=== PATIENT | male | born 1950 | race Caucasian/White ===

== ENCOUNTER 2016-04-26 00:39 | Emergency (ER) | payer OTHER ==
--- NOTE | 2016-04-26 01:30 | REPUSA ---
CLINICAL HISTORY: Neck pain. TECHNIQUE: Multiple axial images were obtained through the cervical spine. Images were also reconstru cted in coronal and sagittal planes. The study was performed without IV contrast. COMMENTS: Moderate focal spondylosis at C6-C7 level. There is no fracture or spondylolisthesis visualized. The paraspinal soft tissues are unremarkable. T here are no lytic or blastic lesions. Straightening of cervical lordosis is seen, suggesting muscular spasm. There is evidence of mild mult ilevel disk disease, demonstrated by osteophytosis and endplate sclerosis. IMPRESSION: 1. No fracture or spondylolisthesis. 2. Straightening of cervical lordosis is seen, suggesting muscular spasm. 3. Moderate focal spondylosis at C6-C7 level. Thank you for your kind referral of this patient.
[2016-04-26] MEDS ORDERED: ONDANSETRON 4 MG ORAL DISINTEGRATING TAB (S0181) As Ordered ONE (01:53)
[2016-04-26] MEDS ORDERED: KETOROLAC 30 MG/ML VIAL (J1885) As Ordered ONE (01:53)
[2016-04-26] MEDS ORDERED: ACETAMINOPHEN 325 MG TAB As Ordered ONE (01:54)
[2016-04-26] MEDS ORDERED: CYCLOBENZAPRINE 10 MG TAB As Ordered ONE (02:51)
--- NOTE | 2016-04-26 02:57 | EDDOCDS ---
Nurse's Notes [facility] Name: Magdaleno Li Age: 65 yrs Sex: Male : 1950 Arrival Date: 04/26/2016 Time: 00:39 Bed I3 / M3 Private MD: Diagnosis: Unspecified injury of head-possible concussion;Sprain of joints and ligaments of other parts of neck;Fall on and from stairs and steps Presentation: 04/26 00:44 Presenting complaint: Patient states: fell down 9 stairs, head first, reports hearing a af2 snap in neck- states landed on neck. now reports migraine, nausea. Adult Sepsis Screening: The patient does not have new or worsening altered mentation. Patient's respiratory rate is less than 22. Systolic blood pressure is greater than 100. Patient has a qSOFA score of 0- Negative Sepsis Screen. Suicide/Homicide risk assessment- the patient denies having any suicidal and/or homicidal ideations and does not present with any other emotional, behavioral or mental health complaints. Status: Patient is not a biomedical field service engineer or dependent. Transition of care: patient was not received from another setting of care. 00:44 Acuity: NICHOLAS Level 3 af2 00:44 Method Of Arrival: Walkin/Carried/Asstd af2 00:49 Acuity level changed due to complexity of care. af2 00:49 Acuity: NICHOLAS Level 4 af2 Triage Assessment: 00:48 General: Appears in no apparent distress, uncomfortable, Behavior is cooperative. Pain: af2 Location: head Pain currently is 9 out of 10 on a pain scale. HIV screening NA for this visit Offered previously. Neurological: Level of Consciousness is awake, alert, obeys commands, Oriented to person, place, time. Respiratory: Airway is patent Respiratory effort is even, unlabored. Derm: Skin is normal. Musculoskeletal: Reports pain in neck. Historical: - Allergies: Haldol; - Home Meds: 1. naproxen 375 mg Oral tab 1 tab every 12 hours 2. Symbicort 160-4.5 mcg/actuation inhalation HFAA 2 puffs 2 times per day - PMHx: COPD; Migraines; - PSHx: none; - Social history: Smoking status: Patient uses tobacco products, current every day smoker. No barriers to communication noted, The patient speaks fluent Canadian. - Family history: Not pertinent. - : The pt / caregiver states he / she is not on anticoagulants. Home medication list is obtained from the patient. - Exposure Risk Screening:: None identified. Screenin:15 Screening information is obtained from the patient. Fall risk: At risk due to prior b history of falls. Assistance ADL's: requires no assistance with activities of daily living. Abuse/DV Screen: The patient / caregiver reports he/she is: not in a situation that causes fear, pain or injury. Nutritional screening: No deficits noted. home support is adequate. 02:55 Advance Directives: Currently, there is no health care proxy. There is no active DNR jmb order. There is no living will. There is no Power of Server Programmer. Assessment: 00:50 General: lindsay collar placed to neck by this quality analyst/technical writer.. af2 02:15 General: Appears in no apparent distress, comfortable, Behavior is appropriate for age, jmb cooperative. Neurological: Level of Consciousness is awake, alert, obeys commands, Oriented to person, place, time, Tool Die Maker are equal bilaterally Speech is normal, Facial symmetry appears normal, Facial symmetry: tongue is midline. Cardiovascular: Capillary refill < 3 seconds Heart tones present Pulses are all present. Rhythm is regular. Respiratory: Airway is patent Respiratory effort is even, unlabored, Respiratory pattern is regular, symmetrical, Breath sounds are clear bilaterally. GI: Abdomen is non- distended Bowel sounds present X 4 quads. Abd is soft X 4 quads. Derm: Skin is pink, warm & dry. Musculoskeletal: Range of motion intact in all extremities. 02:55 General: Patient instructed on discharge instructions. Patient asked if there were any b questions regarding discharge, patient stated no. Patient signed discharge instructions. Patient discharged in stable condition. . Vital Signs: 00:43 BP 164 / 103 LA Sitting (auto/); Pulse 81; Resp 18 S; Temp 98.1(TE); Pulse Ox 96% on af2 R/A; Weight 104.33 kg (R); Height 6 ft. 6 in. (198.12 cm) (R); Pain 9/10; 02:55 BP 148 / 88; Pulse 80; Resp 18; Temp 98.0(O); Pulse Ox 97% on R/A; Pain 0/10; jmb 00:43 Body Mass Index 26.58 (104.33 kg, 198.12 cm) af2 Vitals: 00:43 Log In Time: April 26, 2016 at 00:39. af2 ED Course: 00:40 Patient visited by Willy Valdez Reg. pm4 00:40 Patient moved to Waiting pm4 00:47 Triage Initiated af2 00:49 Patient visited by Tori Chandler RN. af2 00:50 Patient visited by Tori Chandler RN. af2 01:04 Patient moved to I3 / M3 ajs 01:31 CT Head Without Contrast Returned. EDMS 01:31 CT Spine,Cervical W/o Contrast Returned. EDMS 01:45 Darrick Thompson PA-C is PHCP. ar2 01:45 Rakesh Pcikard MD is Attending Physician. ar2 01:45 Patient visited by Darrick Thompson PA-C. ar2 02:15 The patient / caregiver is instructed regarding the plan of care and ED course. jmb 02:15 No IV's were initiated during this patient's visit. No procedures done that require jmb assistance. 02:16 [facility] Payment Agreement was scanned into [employer] and attached to record. pm4 02:17 Patient visited by Anjel Torres RN. jmb Administered Medications: 01:59 Drug: ketorolac 60 mg [ketorolac 30 mg/mL (1 mL) injection solution (2 mL)] Route: IM; jmb Site: left deltoid; 01:59 Drug: Acetaminophen 975 mg [acetaminophen 325 mg tablet (3 tabs)] Route: PO; jmb 01:59 Drug: Ondansetron ODT 4 mg [ondansetron 4 mg disintegrating tablet (1 tabs)] Route: PO; jmb 02:53 Drug: Cyclobenzaprine 10 mg [cyclobenzaprine 10 mg tablet (1 tabs)] Route: PO; jmb Order Results: Radiology Order: CT Head Without Contrast Test: CT Head Without Contrast REASON FOR EXAMINATION: Trauma; ; CLINICAL HISTORY: Head trauma.; TECHNIQUE: Multiple axial brain CT scan sections were obtained from base to vertex without contrast a; dministration.; COMMENTS:; There is no evidence of skull fracture.; The study shows normal configuration of sella turcica. There are no intra or extra-axial collections.; There is no mass effect or midline shift. There is no evidence of hematoma formation. No hydrocephal; us is present. No abnormal calcifications are noted.; No significant abnormalities are seen either in the posterior fossa or supratentorial compartment.; The sinuses and mastoid air cells are patent.; IMPRESSION:; No evidence of acute intracranial pathology. No intracranial hemorrhage or skull fracture.; Thank you for your kind referral of this patient.; ; Radiology Order: CT Spine,Cervical W/o Contrast Test: CT Spine,Cervical W/o Contrast REASON FOR EXAMINATION: Trauma; ; CLINICAL HISTORY: Neck pain.; TECHNIQUE: Multiple axial images were obtained through the cervical spine. Images were also reconstru; cted in coronal and sagittal planes. The study was performed without IV contrast.; COMMENTS:; Moderate focal spondylosis at C6-C7 level.; There is no fracture or spondylolisthesis visualized. The paraspinal soft tissues are unremarkable. T; here are no lytic or blastic lesions.; Straightening of cervical lordosis is seen, suggesting muscular spasm. There is evidence of mild mult; ilevel disk disease, demonstrated by osteophytosis and endplate sclerosis.; IMPRESSION:; 1. No fracture or spondylolisthesis.; 2. Straightening of cervical lordosis is seen, suggesting muscular spasm.; 3. Moderate focal spondylosis at C6-C7 level.; Thank you for your kind referral of this patient.; ; Outcome: 02:51 Discharge ordered by Provider. ar2 02:55 Discharge Assessment: Patient awake, alert and oriented x 3. No cognitive and/or jmb functional deficits noted. Patient verbalized understanding of disposition instructions. Patient awake and alert. obeys commands, Oriented to person, place and time. Patient verbalized understanding of disposition instructions. Patient has no functional deficits. patient administered narcotics - no. The following High Risk Discharge criteria are identified: None. Discharged to home ambulatory, with significant other. Condition: stable Condition: improved. Discharge instructions given to patient, Instructed on discharge instructions, follow up and referral plans. medication usage, Demonstrated understanding of instructions, medications, Pt was receptive of discharge instructions/ teaching. Prescriptions given X 2. CT Study completed. Property sent home with patient. 02:57 Patient left the ED. tonya Signatures: Dispatcher [employer] EDDarrick Baumann PA-C PA-C ar2 Yadira Centeno JoshuaRN RN Tori Esquivel RN RN af2 Willy Valdez, Reg Reg pm4 MTDD
--- NOTE | 2016-04-26 02:57 | EDDOCDS ---
Physician Documentation [facility] Name: Magdaleno Li Age: 65 yrs Sex: Male : 1950 Arrival Date: 04/26/2016 Time: 00:39 Bed I3 / M3 Private MD: Disposition: 04/26/16 02:51 Discharged to Home/Self Care. Impression: Unspecified injury of head - possible concussion, Sprain of joints and ligaments of other parts of neck, Fall on and from stairs and steps. - Condition is Stable. - Discharge Instructions: Concussion, Adult, Head Injury, Adult, Cervical Sprain. - Prescriptions for Cyclobenzaprine 10 mg Oral Tablet - take 1 tablet by ORAL route 3 times per day As needed; 15 tablet. ZOFRAN ODT 4 mg - dissolve 1 tablet by ORAL route 4 times per day As needed do not chew, do not swallow whole; 10 tablet. - Medication Reconciliation, Local Pharmacy Hours form. - Follow up: Private Physician; When: 1 - 2 days; Reason: Recheck today's complaints, Continuance of care. Follow up: Emergency Department; When: As needed; Reason: Worsening of conditions. - Problem is new. - Symptoms have improved. Historical: - Allergies: Haldol; - Home Meds: 1. naproxen 375 mg Oral tab 1 tab every 12 hours 2. Symbicort 160-4.5 mcg/actuation inhalation HFAA 2 puffs 2 times per day - PMHx: COPD; Migraines; - PSHx: none; - Social history: Smoking status: Patient uses tobacco products, current every day smoker. No barriers to communication noted, The patient speaks fluent Sierra Leonean. - Family history: Not pertinent. - : The pt / caregiver states he / she is not on anticoagulants. Home medication list is obtained from the patient. - Exposure Risk Screening:: None identified. Vital Signs: 04/26 00:43 BP 164 / 103 LA Sitting (auto/); Pulse 81; Resp 18 S; Temp 98.1(TE); Pulse Ox 96% on af2 R/A; Weight 104.33 kg / 230.01 lbs (R); Height 6 ft. 6 in. (198.12 cm) (R); Pain 9/10; 02:55 BP 148 / 88; Pulse 80; Resp 18; Temp 98.0(O); Pulse Ox 97% on R/A; Pain 0/10; jmb 00:43 Body Mass Index 26.58 (104.33 kg, 198.12 cm) af2 MDM: 00:52 Apply Stefania Collar to Patient. ordered. ar2 00:53 CT Head Without Contrast Ordered. EDMS 00:53 CT Spine,Cervical W/o Contrast Ordered. EDMS 01:52 ketorolac 60 mg IM once ordered. ar2 01:52 Acetaminophen Tablet 975 mg PO once ordered. ar2 01:52 Ondansetron ODT Oral Disintegrating Tablet 4 mg PO once ordered. ar2 02:01 Financial registration complete. hs2 02:16 [facility] Payment Agreement was scanned into [employer] and attached to record. pm4 02:50 Cyclobenzaprine 10 mg PO once; dispense with patient ordered. ar2 Administered Medications: 01:59 Drug: ketorolac 60 mg [ketorolac 30 mg/mL (1 mL) injection solution (2 mL)] Route: IM; b Site: left deltoid; 01:59 Drug: Acetaminophen 975 mg [acetaminophen 325 mg tablet (3 tabs)] Route: PO; jmb 01:59 Drug: Ondansetron ODT 4 mg [ondansetron 4 mg disintegrating tablet (1 tabs)] Route: PO; jmb 02:53 Drug: Cyclobenzaprine 10 mg [cyclobenzaprine 10 mg tablet (1 tabs)] Route: PO; b Signatures: [facility]patcher [facility] Darrick Thompson PA-C PA-C ar2 Anjel Torres RN RN jmb Tori Chandler RN RN af2 Angela Hein, Reg Reg hs2 Willy Valdez, Reg Reg pm4 The chart was reviewed and I authenticate all verbal orders and agree with the evaluation and treatment provided.Attachments: 02:16 [facility] Payment Agreement pm4 [facility]
--- NOTE | 2016-04-28 03:58 | EDDOCDS ---
Nurse's Notes [facility] Name: Magdaleno Li Age: 65 yrs Sex: Male : 1950 Arrival Date: 04/26/2016 Time: 00:39 Bed I3 / M3 Private MD: Diagnosis: Unspecified injury of head-possible concussion;Sprain of joints and ligaments of other parts of neck;Fall on and from stairs and steps Presentation: 04/26 00:44 Presenting complaint: Patient states: fell down 9 stairs, head first, reports hearing a af2 snap in neck- states landed on neck. now reports migraine, nausea. Adult Sepsis Screening: The patient does not have new or worsening altered mentation. Patient's respiratory rate is less than 22. Systolic blood pressure is greater than 100. Patient has a qSOFA score of 0- Negative Sepsis Screen. Suicide/Homicide risk assessment- the patient denies having any suicidal and/or homicidal ideations and does not present with any other emotional, behavioral or mental health complaints. Status: Patient is not a manager financial services or dependent. Transition of care: patient was not received from another setting of care. 00:44 Acuity: NICHOLAS Level 3 af2 00:44 Method Of Arrival: Walkin/Carried/Asstd af2 00:49 Acuity level changed due to complexity of care. af2 00:49 Acuity: NICHOLAS Level 4 af2 Triage Assessment: 00:48 General: Appears in no apparent distress, uncomfortable, Behavior is cooperative. Pain: af2 Location: head Pain currently is 9 out of 10 on a pain scale. HIV screening NA for this visit Offered previously. Neurological: Level of Consciousness is awake, alert, obeys commands, Oriented to person, place, time. Respiratory: Airway is patent Respiratory effort is even, unlabored. Derm: Skin is normal. Musculoskeletal: Reports pain in neck. Historical: - Allergies: Haldol; - Home Meds: 1. naproxen 375 mg Oral tab 1 tab every 12 hours 2. Symbicort 160-4.5 mcg/actuation inhalation HFAA 2 puffs 2 times per day - PMHx: COPD; Migraines; - PSHx: none; - Social history: Smoking status: Patient uses tobacco products, current every day smoker. No barriers to communication noted, The patient speaks fluent Chadian. - Family history: Not pertinent. - : The pt / caregiver states he / she is not on anticoagulants. Home medication list is obtained from the patient. - Exposure Risk Screening:: None identified. Screenin:15 Screening information is obtained from the patient. Fall risk: At risk due to prior b history of falls. Assistance ADL's: requires no assistance with activities of daily living. Abuse/DV Screen: The patient / caregiver reports he/she is: not in a situation that causes fear, pain or injury. Nutritional screening: No deficits noted. home support is adequate. 02:55 Advance Directives: Currently, there is no health care proxy. There is no active DNR jmb order. There is no living will. There is no Power of Block Cutter. Assessment: 00:50 General: lindsay collar placed to neck by this headline writer.. af2 02:15 General: Appears in no apparent distress, comfortable, Behavior is appropriate for age, jmb cooperative. Neurological: Level of Consciousness is awake, alert, obeys commands, Oriented to person, place, time, Lead Pony Rider are equal bilaterally Speech is normal, Facial symmetry appears normal, Facial symmetry: tongue is midline. Cardiovascular: Capillary refill < 3 seconds Heart tones present Pulses are all present. Rhythm is regular. Respiratory: Airway is patent Respiratory effort is even, unlabored, Respiratory pattern is regular, symmetrical, Breath sounds are clear bilaterally. GI: Abdomen is non- distended Bowel sounds present X 4 quads. Abd is soft X 4 quads. Derm: Skin is pink, warm & dry. Musculoskeletal: Range of motion intact in all extremities. 02:55 General: Patient instructed on discharge instructions. Patient asked if there were any b questions regarding discharge, patient stated no. Patient signed discharge instructions. Patient discharged in stable condition. . Vital Signs: 00:43 BP 164 / 103 LA Sitting (auto/); Pulse 81; Resp 18 S; Temp 98.1(TE); Pulse Ox 96% on af2 R/A; Weight 104.33 kg (R); Height 6 ft. 6 in. (198.12 cm) (R); Pain 9/10; 02:55 BP 148 / 88; Pulse 80; Resp 18; Temp 98.0(O); Pulse Ox 97% on R/A; Pain 0/10; jmb 00:43 Body Mass Index 26.58 (104.33 kg, 198.12 cm) af2 Vitals: 00:43 Log In Time: April 26, 2016 at 00:39. af2 ED Course: 00:40 Patient visited by Willy Valdez Reg. pm4 00:40 Patient moved to Waiting pm4 00:47 Triage Initiated af2 00:49 Patient visited by Tori Chandler RN. af2 00:50 Patient visited by Tori Chandler RN. af2 01:04 Patient moved to I3 / M3 ajs 01:31 CT Head Without Contrast Returned. EDMS 01:31 CT Spine,Cervical W/o Contrast Returned. EDMS 01:45 Darrick Thompson PA-C is PHCP. ar2 01:45 Rakesh Pickard MD is Attending Physician. ar2 01:45 Patient visited by Darrick Thompson PA-C. ar2 02:15 The patient / caregiver is instructed regarding the plan of care and ED course. jmb 02:15 No IV's were initiated during this patient's visit. No procedures done that require jmb assistance. 02:16 [facility] Payment Agreement was scanned into [employer] and attached to record. pm4 02:17 Patient visited by Anjel Torres RN. jmb 14:33 T-Sheet-- Draft Copy was scanned into [employer] and attached to record. gb 14:33 Radiology Report was scanned into [employer] and attached to record. gb Administered Medications: 01:59 Drug: ketorolac 60 mg [ketorolac 30 mg/mL (1 mL) injection solution (2 mL)] Route: IM; jmb Site: left deltoid; 01:59 Drug: Acetaminophen 975 mg [acetaminophen 325 mg tablet (3 tabs)] Route: PO; jmb 01:59 Drug: Ondansetron ODT 4 mg [ondansetron 4 mg disintegrating tablet (1 tabs)] Route: PO; jmb 02:53 Drug: Cyclobenzaprine 10 mg [cyclobenzaprine 10 mg tablet (1 tabs)] Route: PO; jmb Order Results: Radiology Order: CT Head Without Contrast Test: CT Head Without Contrast REASON FOR EXAMINATION: Trauma; ; CLINICAL HISTORY: Head trauma.; TECHNIQUE: Multiple axial brain CT scan sections were obtained from base to vertex without contrast a; dministration.; COMMENTS:; There is no evidence of skull fracture.; The study shows normal configuration of sella turcica. There are no intra or extra-axial collections.; There is no mass effect or midline shift. There is no evidence of hematoma formation. No hydrocephal; us is present. No abnormal calcifications are noted.; No significant abnormalities are seen either in the posterior fossa or supratentorial compartment.; The sinuses and mastoid air cells are patent.; IMPRESSION:; No evidence of acute intracranial pathology. No intracranial hemorrhage or skull fracture.; Thank you for your kind referral of this patient.; ; Radiology Order: CT Spine,Cervical W/o Contrast Test: CT Spine,Cervical W/o Contrast REASON FOR EXAMINATION: Trauma; ; CLINICAL HISTORY: Neck pain.; TECHNIQUE: Multiple axial images were obtained through the cervical spine. Images were also reconstru; cted in coronal and sagittal planes. The study was performed without IV contrast.; COMMENTS:; Moderate focal spondylosis at C6-C7 level.; There is no fracture or spondylolisthesis visualized. The paraspinal soft tissues are unremarkable. T; here are no lytic or blastic lesions.; Straightening of cervical lordosis is seen, suggesting muscular spasm. There is evidence of mild mult; ilevel disk disease, demonstrated by osteophytosis and endplate sclerosis.; IMPRESSION:; 1. No fracture or spondylolisthesis.; 2. Straightening of cervical lordosis is seen, suggesting muscular spasm.; 3. Moderate focal spondylosis at C6-C7 level.; Thank you for your kind referral of this patient.; ; Outcome: 02:51 Discharge ordered by Provider. ar2 02:55 Discharge Assessment: Patient awake, alert and oriented x 3. No cognitive and/or jmb functional deficits noted. Patient verbalized understanding of disposition instructions. Patient awake and alert. obeys commands, Oriented to person, place and time. Patient verbalized understanding of disposition instructions. Patient has no functional deficits. patient administered narcotics - no. The following High Risk Discharge criteria are identified: None. Discharged to home ambulatory, with significant other. Condition: stable Condition: improved. Discharge instructions given to patient, Instructed on discharge instructions, follow up and referral plans. medication usage, Demonstrated understanding of instructions, medications, Pt was receptive of discharge instructions/ teaching. Prescriptions given X 2. CT Study completed. Property sent home with patient. 02:57 Patient left the ED. tonya Signatures: Dispatcher [employer] EDSD Margarette Jackson, Reg Reg gb Darrick Thompson, CLAIRE RANGEL ar2 Yadira Centeno Joshua,RN RN Tori Esquivel RN RN af2 Willy Valdez, Reg Reg pm4 Chart Complete MTDD
--- NOTE | 2016-04-28 03:58 | EDDOCDS ---
Physician Documentation [facility] Name: Magdaleno Li Age: 65 yrs Sex: Male : 1950 Arrival Date: 04/26/2016 Time: 00:39 Bed I3 / M3 Private MD: Disposition: 04/26/16 02:51 Discharged to Home/Self Care. Impression: Unspecified injury of head - possible concussion, Sprain of joints and ligaments of other parts of neck, Fall on and from stairs and steps. - Condition is Stable. - Discharge Instructions: Concussion, Adult, Head Injury, Adult, Cervical Sprain. - Prescriptions for Cyclobenzaprine 10 mg Oral Tablet - take 1 tablet by ORAL route 3 times per day As needed; 15 tablet. ZOFRAN ODT 4 mg - dissolve 1 tablet by ORAL route 4 times per day As needed do not chew, do not swallow whole; 10 tablet. - Medication Reconciliation, Local Pharmacy Hours form. - Follow up: Private Physician; When: 1 - 2 days; Reason: Recheck today's complaints, Continuance of care. Follow up: Emergency Department; When: As needed; Reason: Worsening of conditions. - Problem is new. - Symptoms have improved. Historical: - Allergies: Haldol; - Home Meds: 1. naproxen 375 mg Oral tab 1 tab every 12 hours 2. Symbicort 160-4.5 mcg/actuation inhalation HFAA 2 puffs 2 times per day - PMHx: COPD; Migraines; - PSHx: none; - Social history: Smoking status: Patient uses tobacco products, current every day smoker. No barriers to communication noted, The patient speaks fluent Beninese. - Family history: Not pertinent. - : The pt / caregiver states he / she is not on anticoagulants. Home medication list is obtained from the patient. - Exposure Risk Screening:: None identified. Vital Signs: 04/26 00:43 BP 164 / 103 LA Sitting (auto/); Pulse 81; Resp 18 S; Temp 98.1(TE); Pulse Ox 96% on af2 R/A; Weight 104.33 kg / 230.01 lbs (R); Height 6 ft. 6 in. (198.12 cm) (R); Pain 9/10; 02:55 BP 148 / 88; Pulse 80; Resp 18; Temp 98.0(O); Pulse Ox 97% on R/A; Pain 0/10; jmb 00:43 Body Mass Index 26.58 (104.33 kg, 198.12 cm) af2 MDM: 00:52 Apply Stefania Collar to Patient. ordered. ar2 00:53 CT Head Without Contrast Ordered. EDMS 00:53 CT Spine,Cervical W/o Contrast Ordered. EDMS 01:52 ketorolac 60 mg IM once ordered. ar2 01:52 Acetaminophen Tablet 975 mg PO once ordered. ar2 01:52 Ondansetron ODT Oral Disintegrating Tablet 4 mg PO once ordered. ar2 02:01 Financial registration complete. hs2 02:16 [facility] Payment Agreement was scanned into [employer] and attached to record. pm4 02:50 Cyclobenzaprine 10 mg PO once; dispense with patient ordered. ar2 14:33 T-Sheet-- Draft Copy was scanned into [employer] and attached to record. gb 14:33 Radiology Report was scanned into [employer] and attached to record. gb Administered Medications: 01:59 Drug: ketorolac 60 mg [ketorolac 30 mg/mL (1 mL) injection solution (2 mL)] Route: IM; b Site: left deltoid; 01:59 Drug: Acetaminophen 975 mg [acetaminophen 325 mg tablet (3 tabs)] Route: PO; b 01:59 Drug: Ondansetron ODT 4 mg [ondansetron 4 mg disintegrating tablet (1 tabs)] Route: PO; b 02:53 Drug: Cyclobenzaprine 10 mg [cyclobenzaprine 10 mg tablet (1 tabs)] Route: PO; b Signatures: Dispatcher [employer] EDRI Margarette Jackson, Reg Reg gb Darrick Thompson, PASona PASona ar2 Anjel Torres RN RN tayb Tori ChandlerRN RN af2 Angela Hein, Reg Reg hs2 Willy Valdez, Reg Reg pm4 The chart was reviewed and I authenticate all verbal orders and agree with the evaluation and treatment provided.Attachments: 02:16 [facility] Payment Agreement pm4 14:33 T-Sheet-- Draft Copy gb Chart Complete MTDD
--- NOTE | 2016-04-28 03:58 | EDDOCDS ---
Physician Documentation [facility] Name: Magdaleno Li Age: 65 yrs Sex: Male : 1950 Arrival Date: 04/26/2016 Time: 00:39 Bed I3 / M3 Private MD: Disposition: 04/26/16 02:51 Discharged to Home/Self Care. Impression: Unspecified injury of head - possible concussion, Sprain of joints and ligaments of other parts of neck, Fall on and from stairs and steps. - Condition is Stable. - Discharge Instructions: Concussion, Adult, Head Injury, Adult, Cervical Sprain. - Prescriptions for Cyclobenzaprine 10 mg Oral Tablet - take 1 tablet by ORAL route 3 times per day As needed; 15 tablet. ZOFRAN ODT 4 mg - dissolve 1 tablet by ORAL route 4 times per day As needed do not chew, do not swallow whole; 10 tablet. - Medication Reconciliation, Local Pharmacy Hours form. - Follow up: Private Physician; When: 1 - 2 days; Reason: Recheck today's complaints, Continuance of care. Follow up: Emergency Department; When: As needed; Reason: Worsening of conditions. - Problem is new. - Symptoms have improved. Historical: - Allergies: Haldol; - Home Meds: 1. naproxen 375 mg Oral tab 1 tab every 12 hours 2. Symbicort 160-4.5 mcg/actuation inhalation HFAA 2 puffs 2 times per day - PMHx: COPD; Migraines; - PSHx: none; - Social history: Smoking status: Patient uses tobacco products, current every day smoker. No barriers to communication noted, The patient speaks fluent Mosotho. - Family history: Not pertinent. - : The pt / caregiver states he / she is not on anticoagulants. Home medication list is obtained from the patient. - Exposure Risk Screening:: None identified. Vital Signs: 04/26 00:43 BP 164 / 103 LA Sitting (auto/); Pulse 81; Resp 18 S; Temp 98.1(TE); Pulse Ox 96% on af2 R/A; Weight 104.33 kg / 230.01 lbs (R); Height 6 ft. 6 in. (198.12 cm) (R); Pain 9/10; 02:55 BP 148 / 88; Pulse 80; Resp 18; Temp 98.0(O); Pulse Ox 97% on R/A; Pain 0/10; jmb 00:43 Body Mass Index 26.58 (104.33 kg, 198.12 cm) af2 MDM: 00:52 Apply Stefania Collar to Patient. ordered. ar2 00:53 CT Head Without Contrast Ordered. EDMS 00:53 CT Spine,Cervical W/o Contrast Ordered. EDMS 01:52 ketorolac 60 mg IM once ordered. ar2 01:52 Acetaminophen Tablet 975 mg PO once ordered. ar2 01:52 Ondansetron ODT Oral Disintegrating Tablet 4 mg PO once ordered. ar2 02:01 Financial registration complete. hs2 02:16 [facility] Payment Agreement was scanned into [employer] and attached to record. pm4 02:50 Cyclobenzaprine 10 mg PO once; dispense with patient ordered. ar2 14:33 T-Sheet-- Draft Copy was scanned into [employer] and attached to record. gb 14:33 Radiology Report was scanned into [employer] and attached to record. gb Administered Medications: 01:59 Drug: ketorolac 60 mg [ketorolac 30 mg/mL (1 mL) injection solution (2 mL)] Route: IM; b Site: left deltoid; 01:59 Drug: Acetaminophen 975 mg [acetaminophen 325 mg tablet (3 tabs)] Route: PO; b 01:59 Drug: Ondansetron ODT 4 mg [ondansetron 4 mg disintegrating tablet (1 tabs)] Route: PO; b 02:53 Drug: Cyclobenzaprine 10 mg [cyclobenzaprine 10 mg tablet (1 tabs)] Route: PO; b Signatures: Dispatcher [employer] EDUT Margarette Jackson, Reg Reg gb Darrick Thompson, PASona PASona ar2 Anjel Torres RN RN tayb Tori ChandlerRN RN af2 Angela Hein, Reg Reg hs2 Willy Valdez, Reg Reg pm4 The chart was reviewed and I authenticate all verbal orders and agree with the evaluation and treatment provided.Attachments: 02:16 [facility] Payment Agreement pm4 14:33 T-Sheet-- Draft Copy gb Chart Complete MTDD
== END 2016-04-26 02:57 | disposition home or self-care (01) ==
LOC: M ED 00:39
DX: S09.90XA Unspecified injury of head, initial encounter (principal); S13.4XXA Sprain of ligaments of cervical spine, initial encounter; W10.9XXA Fall (on) (from) unspecified stairs and steps, initial encounter; Y92.018 Other place in single-family (private) house as the place of occurrence of the external cause; Y93.89 Activity, other specified; Y99.8 Other external cause status; J44.9 Chronic obstructive pulmonary disease, unspecified; G43.909 Migraine, unspecified, not intractable, without status migrainosus; Z79.899 Other long term (current) drug therapy; Z88.8 Allergy status to other drugs, medicaments and biological substances; F17.210 Nicotine dependence, cigarettes, uncomplicated
CPT/HCPCS: 70450; 72125; 96372; 99284; J1885

== ENCOUNTER 2016-07-03 23:32 | Emergency (ER) | payer MEDICAID, OTHER ==
[~2016-07-03] VITALS: Ht 198.1 cm; Wt 105.2 kg
[2016-07-03] MEDS ORDERED: ALBU17IN2 INH (23:41)
[2016-07-03] MEDS ORDERED: PROP60TA14 PO (23:41)
[2016-07-03] MEDS ORDERED: SYMB16INH INH (23:41)
[2016-07-04] MEDS ORDERED: ONDANSETRON 4MG/2ML VIAL (J2405) As Ordered ONE (00:24)
[2016-07-04 01:19] LABS: ALBUMIN 3.5 GM/DL (3.2-5.2); ALKALINE PHOSPHATASE 99 U/L (45-117); ALT/SGPT 25 U/L (12-78); ANION GAP 5 MEQ/L (8-16); AST/SGOT 20 U/L (15-37); BILIRUBIN,DIRECT < 0.1 MG/DL (0.0-0.2); BILIRUBIN,TOTAL 0.3 MG/DL (0.2-1.0); BLOOD UREA NITROGEN 18 MG/DL (7-18); CALCIUM LEVEL 8.4 MG/DL (8.8-10.2); CARBON DIOXIDE LEVEL 25 MEQ/L (21-32); CHLORIDE LEVEL 110 MEQ/L (98-107); CREATININE FOR GFR 1.22 MG/DL (0.70-1.30); GLOMERULAR FILTRATION RATE > 60.0 (>49); GLUCOSE, FASTING 109 MG/DL (80-110); POTASSIUM SERUM 4.1 MEQ/L (3.5-5.1); SODIUM LEVEL 140 MEQ/L (136-145)
[2016-07-04 01:33] LABS: BASO # 0.1 K/mm3 (0.0-0.2); BASO % 0.9 % (0.0-1.0); EOS # 0.7 K/mm3 (0.0-0.50); EOS % 6.2 % (0.0-3.0); LARGE UNSTAINED CELL # 0.3 K/mm3 (0.0-0.4); LARGE UNSTAINED CELL % 2.2 % (0.0-4.0); LYMPH # 3.2 K/mm3 (1.5-4.5); LYMPH % 26.2 % (24.0-44.0); MEAN CORPUSCULAR HEMOGLOBIN 31.5 pg (27.0-33.0); MEAN CORPUSCULAR HGB CONC 33.8 g/dl (32.0-36.5); MEAN CORPUSCULAR VOLUME 93.3 fl (80.0-96.0); MONO # 0.8 K/mm3 (0.0-0.8); MONO % 7.3 % (0.0-5.0); NEUTROPHILS # 6.5 K/mm3 (1.8-7.7); NEUTROPHILS % 57.3 % (36.0-66.0); PLATELET COUNT, AUTOMATED 315 k/mm3 (150-450); RED CELL DISTRIBUTION WIDTH 12.9 % (11.5-14.5); WHITE BLOOD COUNT 11.4 K/mm3 (4.0-10.0)
[2016-07-04] MEDS ORDERED: NS 1,000 ML IV ONE (02:15)
[2016-07-04] MEDS ORDERED: IPRATROPIUM 0.5MG/ALBUTEROL 2.5MG INH SOL UD 3ML (DUONEB)(J7620) NEB ONE (02:15)
[2016-07-04] MEDS ORDERED: dexameTHASONE 20 MG/5 ML VIAL (J1100) IV ONE (02:15)
--- NOTE | 2016-07-04 03:10 | REPUSA ---
CLINICAL HISTORY: Abdominal pain. TECHNIQUE: Multiple axial, sagittal and coronal CT images were obtained through the abdomen and pelvi s without administration of oral or IV contrast material. COMMENTS: The liver is of uniform attenuation without mass or defect. There is no intra or extrahepatic biliary ductal dilatation. The spleen is normal. The gallbladder is within normal limits. The pancreas is of normal contour and attenuation characteristics. There is no evidence of adrenal mass. Mild right hydronephrosis. Normal caliber of the right ureter. The kidneys are normal in size, shape and configuration. No renal or ureteral calculi are identified. There is no left hydroureter or hydronephrosis. There is no evidence for appendicitis. There is no bowel wall thickening. No evidence for small or la rge bowel obstruction. There is no evidence of abdominal ascites or lymphadenopathy. There is no evidence of intrinsic or extrinsic bladder mass. There is no pelvic ascites or lymphadeno gerardo. Moderate large right fecal stasis Images of the lung bases show no evidence of pleural or parenchymal mass. There are no pleural effusi ons. The bony structures are free of lytic or blastic lesions. Multilevel degenerative changes are seen in volving the thoracolumbar spine. Scattered calcifications are seen involving the aorta and major branches compatible with atherosclero sis. Atelectatic changes of the right lower lobe. IMPRESSION: Constipation. Right UPJ stenosis. Thank you for your kind referral of this patient.
[2016-07-04] MEDS ORDERED: traMADol 50 MG TAB PO ONE (04:15)
[2016-07-04] MEDS ORDERED: PRED20TA PO (04:28)
[2016-07-04 04:55] VITALS: BP 152/107
--- NOTE | 2016-07-04 08:06 | REP ---
Chest single PA view: Comparison is a PA and lateral study of 01/08/2016. There is a faintly visible linear density projected over the right upper lobe superolaterally, possibly artifact from the scapula, but not present previously. Other diagnostic considerations are mass and subsegmental infiltrate. Follow-up is recommended. The remainder of the lung baron are clear. Cardiac size is normal. The destiny, mediastinum, and bony thorax are unchanged. Impression: Right upper lobe density as described. Signed by Jesus Castaneda MD 07/04/2016 07:56 A
--- NOTE | 2016-07-04 08:30 | ED PDOC ---
Post-Departure Follow-Up certified letter sent to pt re formal cxr. please have pt fu w pcp which is not listed in chart. Priti Gillespie MD Jul 04, 2016 08:30
--- NOTE | 2016-07-04 08:34 | ED PDOC ---
Post-Departure Follow-Up dr garcia faxed formal report of CT abd/p for fu jeanmarieg Priti Bates MD Jul 04, 2016 08:34
--- NOTE | 2016-07-04 21:43 | ECGEPIP ---
Stationary ECG Study [facility] - ED Test Date: 2016-07-04 Pat Name: WILY GOETZ Department: Room: - Gender: M Contract Design Agent: angelita : 1950 Requested By: JAYLA CHUNG Order Number: [id number] Reading MD: Orin Ortiz Measurements Intervals [place] Rate: 77 P: 67 [place]: 203 QRS: -44 QRSD: 96 T: 44 QT: 362 QTc: 410 Interpretive Statements SINUS RHYTHM MARKED LEFT AXIS DEVIATION SIMILAR 01/08/16 Electronically Signed On 07-04-2016 21:43:13 EDT by Orin Ortiz
== END 2016-07-04 05:11 | disposition home or self-care (01) ==
LOC: M ED 07-04 00:20
DX: J44.9 Chronic obstructive pulmonary disease, unspecified (principal); K59.00 Constipation, unspecified; N13.8 Other obstructive and reflux uropathy; F17.210 Nicotine dependence, cigarettes, uncomplicated
CPT/HCPCS: 71010; 74176; 80048; 80076; 81001; 82550; 82553; 83690; 84484; 85025; 87086; 93005; 93041; 94640; 96374; 96375; 99285; J1100

== ENCOUNTER → 2016-07-06 | Outpatient (CLI) | payer OTHER ==
[~2016-07-06] MED LIST: ALBU17IN2 INH; PRED20TA PO; PROP60TA14 PO; SYMB16INH INH
== END ==
LOC: M SMT 10:19
PROVIDERS: ATTEND Nurse Practitioner Women's Health
DX: R31.29 Other microscopic hematuria (principal); Z12.5 Encounter for screening for malignant neoplasm of prostate
CPT/HCPCS: 36415; 51798; 81001; 87086; 88108; G0103; G0463

== ENCOUNTER 2016-07-10 04:07 | Emergency (ER) | payer OTHER ==
[~2016-07-10] VITALS: Ht 198.1 cm; Wt 104.3 kg
[2016-07-10] MEDS ORDERED: diphenhydrAMINE INJ 50MG/ML VIAL (J1200) IV STA (07:02)
[2016-07-10] MEDS ORDERED: NS 1,000 ML IV ONE (07:15)
[2016-07-10] MEDS ORDERED: METOCLOPRAMIDE INJ 10MG/2ML VIAL (J2765) IV ONE (07:15)
[2016-07-10] MEDS ORDERED: KETOROLAC 30 MG/ML VIAL (J1885) IV ONE (07:15)
[2016-07-10 07:32] LABS: BASO # 0.1 K/mm3 (0.0-0.2); BASO % 0.7 % (0.0-1.0); EOS # 0.8 K/mm3 (0.0-0.50); EOS % 7.6 % (0.0-3.0); LARGE UNSTAINED CELL # 0.2 K/mm3 (0.0-0.4); LYMPH # 3.1 K/mm3 (1.5-4.5); LYMPH % 25.6 % (24.0-44.0); MEAN CORPUSCULAR HEMOGLOBIN 31.1 pg (27.0-33.0); MEAN CORPUSCULAR HGB CONC 33.1 g/dl (32.0-36.5); MEAN CORPUSCULAR VOLUME 93.8 fl (80.0-96.0); MONO # 0.8 K/mm3 (0.0-0.8); MONO % 7.5 % (0.0-5.0); NEUTROPHILS # 6.4 K/mm3 (1.8-7.7); NEUTROPHILS % 56.6 % (36.0-66.0); PLATELET COUNT, AUTOMATED 309 k/mm3 (150-450); RED CELL DISTRIBUTION WIDTH 12.8 % (11.5-14.5); WHITE BLOOD COUNT 11.2 K/mm3 (4.0-10.0)
[2016-07-10 07:42] LABS: ALBUMIN 3.5 GM/DL (3.2-5.2); ALKALINE PHOSPHATASE 104 U/L (45-117); ALT/SGPT 28 U/L (12-78); ANION GAP 8 MEQ/L (8-16); AST/SGOT 13 U/L (15-37); BILIRUBIN,DIRECT < 0.1 MG/DL (0.0-0.2); BILIRUBIN,TOTAL 0.3 MG/DL (0.2-1.0); BLOOD UREA NITROGEN 19 MG/DL (7-18); CALCIUM LEVEL 8.5 MG/DL (8.8-10.2); CARBON DIOXIDE LEVEL 25 MEQ/L (21-32); CHLORIDE LEVEL 107 MEQ/L (98-107); CREATININE FOR GFR 1.13 MG/DL (0.70-1.30); GLOMERULAR FILTRATION RATE > 60.0 (>49); GLUCOSE, FASTING 110 MG/DL (80-110); POTASSIUM SERUM 4.2 MEQ/L (3.5-5.1); SODIUM LEVEL 140 MEQ/L (136-145); TOTAL PROTEIN 7.4 GM/DL (6.4-8.2)
[2016-07-10 08:10] LABS: METHADONE URINE NEGATIVE (NEGATIVE)
[2016-07-10] MEDS ORDERED: HYDROmorphone HCL 1 MG/ML SYRINGE (J1170) IV ONE (08:15)
--- NOTE | 2016-07-10 08:49 | REP ---
REASON: Left sided pain. History of constipation. PRIORS: None. FINDINGS: KUB shows the intestinal gas pattern to be nonspecific. The organ silhouettes insofar as delineated are unremarkable. There is no evidence of free intraperitoneal air. IMPRESSION: Nonspecific. There is a moderate to large amount of stool seen throughout the colon which needs to be correlated clinically. Signed by Bunny Duke DO 07/10/2016 09:01 A
[2016-07-10 08:50] VITALS: BP 143/94
[2016-07-10] MEDS ORDERED: MAGNESIUM CITRATE 300 ML BTL PO ONE (09:15)
== END 2016-07-10 09:24 | disposition home or self-care (01) ==
LOC: M ED 05:09
DX: K59.00 Constipation, unspecified (principal); G43.909 Migraine, unspecified, not intractable, without status migrainosus; E86.0 Dehydration
CPT/HCPCS: 74020; 80048; 80076; 80306; 81001; 83690; 85025; 86140; 96374; 96375; 99281; J1170; J1200; J1885; J2765

== ENCOUNTER → 2016-08-03 | Outpatient (CLI) | payer OTHER ==
[~2016-08-03] MED LIST changes: +COMBAER6 INH; +DICL75TA PO; +ISOVUE-370 76% 100ML VIAL (Q9967) As Ordered ONE; +TAMSULOSIN PO; +inderal PO
--- NOTE | 2016-08-04 10:35 | REP ---
CT ABDOMEN: HISTORY: Microscopic hematuria. COMPARISON: Noncontrast enhanced exam 07/04/2016. CONTRAST: 100 mL Isovue-370 Chronic changes are seen in the lung bases. There has been no significant change. There are no pleural or pericardial effusions. The precontrast enhanced portion of the exam shows hepatic and splenic densities to be within normal limits. There is unchanged right sided hydronephrosis. There is an unchanged tiny 3 mm size right nephrolith. There is an unchanged tiny left nephrolith. There is no james hydroureter. There are no choleliths. Contrast enhanced portion of the examination shows an unchanged right renal cyst and mild right hydronephrosis versus a UPJ configuration, which may be functional. This needs clinical correlation. The liver, gallbladder, spleen, pancreas, adrenal glands and left kidney are unchanged and again seen to be within normal limits with the exception of the aforementioned nephrolith. The abdominal aorta and paraaortic regions are again seen to be within normal limits and unchanged. The bowel loops and their mesenteries are within normal limits and essentially unchanged. No free fluid or free air is seen in the abdomen. CT pelvis: The bowel loops and their mesenteries are within normal limits. No free fluid or free air is present in the pelvis. There is no evidence of a pelvic mass or adenopathy. Bone window technique throughout the exam shows the osseous structures to be stable and intact. IMPRESSION: 1. No evidence of acute intraabdominal or intrapelvic disease or significant change from the prior examination with findings as described above. 2. Chronic lung base changes. Correlate clinically and if necessary obtain chest CT. 3. Other findings as described above. Signed by Bunny Duke DO 08/04/2016 11:36 A
== END ==
LOC: M RAD 16:06
PROVIDERS: ATTEND Nurse Practitioner Women's Health
DX: N13.1 Hydronephrosis with ureteral stricture, not elsewhere classified (principal); R91.8 Other nonspecific abnormal finding of lung field
CPT/HCPCS: 74178; Q9967

== ENCOUNTER 2016-08-05 19:13 | Emergency (ER) | payer OTHER ==
[~2016-08-05] VITALS: Ht 198.1 cm; Wt 104.3 kg
[~2016-08-05 19:13] MED LIST changes: -COMBAER6 INH; -DICL75TA PO; -ISOVUE-370 76% 100ML VIAL (Q9967) As Ordered ONE; -TAMSULOSIN PO; -inderal PO
[2016-08-05] MEDS ORDERED: inderal PO (19:26)
[2016-08-05] MEDS ORDERED: DICL75TA PO (19:26)
[2016-08-05] MEDS ORDERED: COMBAER6 INH (19:26)
[2016-08-05] MEDS ORDERED: TAMSULOSIN PO (19:26)
[2016-08-05] MEDS ORDERED: diphenhydrAMINE INJ 50MG/ML VIAL (J1200) IV STA (20:49)
[2016-08-05] MEDS ORDERED: HYDROmorphone HCL 1 MG/ML SYRINGE (J1170) IV ONE (21:00)
[2016-08-05] MEDS ORDERED: METOCLOPRAMIDE INJ 10MG/2ML VIAL (J2765) IV ONE (21:00)
[2016-08-05] MEDS ORDERED: IPRATROPIUM 0.5MG/ALBUTEROL 2.5MG INH SOL UD 3ML (DUONEB)(J7620) NEB ONE (21:00)
[2016-08-05 21:33] LABS: BASO # 0.1 K/mm3 (0.0-0.2); BASO % 0.8 % (0.0-1.0); EOS # 0.6 K/mm3 (0.0-0.50); EOS % 5.6 % (0.0-3.0); LARGE UNSTAINED CELL # 0.2 K/mm3 (0.0-0.4); LARGE UNSTAINED CELL % 1.9 % (0.0-4.0); LYMPH # 2.4 K/mm3 (1.5-4.5); LYMPH % 24.1 % (24.0-44.0); MEAN CORPUSCULAR HEMOGLOBIN 32.3 pg (27.0-33.0); MEAN CORPUSCULAR HGB CONC 33.2 g/dl (32.0-36.5); MEAN CORPUSCULAR VOLUME 97.4 fl (80.0-96.0); MONO # 0.6 K/mm3 (0.0-0.8); MONO % 5.7 % (0.0-5.0); NEUTROPHILS # 6.1 K/mm3 (1.8-7.7); NEUTROPHILS % 61.9 % (36.0-66.0); PLATELET COUNT, AUTOMATED 302 k/mm3 (150-450); RED CELL DISTRIBUTION WIDTH 12.6 % (11.5-14.5); WHITE BLOOD COUNT 9.8 K/mm3 (4.0-10.0)
[2016-08-05 22:34] LABS: ANION GAP 5 MEQ/L (8-16); BLOOD UREA NITROGEN 17 MG/DL (7-18); CALCIUM LEVEL 8.5 MG/DL (8.8-10.2); CARBON DIOXIDE LEVEL 27 MEQ/L (21-32); CHLORIDE LEVEL 108 MEQ/L (98-107); CREATININE FOR GFR 1.03 MG/DL (0.70-1.30); GLOMERULAR FILTRATION RATE > 60.0 (>49); GLUCOSE, FASTING 103 MG/DL (80-110); POTASSIUM SERUM 4.3 MEQ/L (3.5-5.1); SODIUM LEVEL 140 MEQ/L (136-145)
[2016-08-05 22:49] VITALS: BP 143/94
== END 2016-08-05 22:51 | disposition home or self-care (01) ==
LOC: M ED 20:13
DX: G43.909 Migraine, unspecified, not intractable, without status migrainosus (principal); J44.9 Chronic obstructive pulmonary disease, unspecified; E07.9 Disorder of thyroid, unspecified; N40.0 Benign prostatic hyperplasia without lower urinary tract symptoms; Z79.899 Other long term (current) drug therapy; Z88.8 Allergy status to other drugs, medicaments and biological substances; F17.210 Nicotine dependence, cigarettes, uncomplicated
CPT/HCPCS: 80048; 85025; 94640; 96374; 96375; 99283; J1170; J1200; J2765

== ENCOUNTER → 2016-08-16 | Outpatient (CLI) | payer OTHER ==
[~2016-08-16] MED LIST changes: +COMBAER6 INH; +DICL75TA PO; +TAMSULOSIN PO; +inderal PO
[2016-08-16 17:37] LABS: INR 0.95
[2016-08-16 18:07] LABS: ANION GAP 6 MEQ/L (8-16); BLOOD UREA NITROGEN 16 MG/DL (7-18); CALCIUM LEVEL 8.7 MG/DL (8.8-10.2); CARBON DIOXIDE LEVEL 26 MEQ/L (21-32); CHLORIDE LEVEL 109 MEQ/L (98-107); CREATININE FOR GFR 1.21 MG/DL (0.70-1.30); GLOMERULAR FILTRATION RATE > 60.0 (>49); GLUCOSE, FASTING 103 MG/DL (80-110); POTASSIUM SERUM 4.7 MEQ/L (3.5-5.1); SODIUM LEVEL 141 MEQ/L (136-145)
[2016-08-16 18:25] LABS: MEAN CORPUSCULAR HEMOGLOBIN 32.1 pg (27.0-33.0); MEAN CORPUSCULAR HGB CONC 32.9 g/dl (32.0-36.5); MEAN CORPUSCULAR VOLUME 97.5 fl (80.0-96.0); RED CELL DISTRIBUTION WIDTH 12.6 % (11.5-14.5); WHITE BLOOD COUNT 10.7 K/mm3 (4.0-10.0)
--- NOTE | 2016-08-16 19:02 | REP ---
PA and lateral chest: Comparisons are 07/04/2016 and 01/08/2016. Lung baron are hyperinflated, as previously. I suspect there are multiple bulla, particularly in the upper lobes, unchanged. Findings are compatible with COPD, however, require clinical confirmation. There are no acute infiltrates or effusions. There are no masses. Lung baron otherwise clear and unchanged. The cardiac size is normal. The destiny, mediastinum, and bony thorax are unremarkable. Impression: There are no new or acute cardiopulmonary findings. There are findings compatible with COPD, requiring clinical confirmation. Signed by Jesus Castaneda MD 08/16/2016 06:54 P
== END ==
LOC: M LAB 16:43
PROVIDERS: ATTEND Family Medicine
DX: Z01.812 Encounter for preprocedural laboratory examination (principal); N13.1 Hydronephrosis with ureteral stricture, not elsewhere classified; Z79.899 Other long term (current) drug therapy; R31.29 Other microscopic hematuria

== ENCOUNTER 2016-08-22 23:51 | Emergency (ER) | payer OTHER ==
[~2016-08-22] VITALS: Ht 198.1 cm; Wt 104.3 kg
[2016-08-23] MEDS ORDERED: METOCLOPRAMIDE INJ 10MG/2ML VIAL (J2765) IV ONE (01:30)
[2016-08-23] MEDS ORDERED: NS 1,000 ML IV ONE (01:30)
[2016-08-23] MEDS ORDERED: KETOROLAC 30 MG/ML VIAL (J1885) IV ONE (01:30)
[2016-08-23] MEDS ORDERED: diphenhydrAMINE INJ 50MG/ML VIAL (J1200) IV ONE (01:30)
[2016-08-23] MEDS ORDERED: HYDROmorphone HCL 1 MG/ML SYRINGE (J1170) IV ONE (01:30)
[2016-08-23 04:08] VITALS: BP 140/93
== END 2016-08-23 04:12 | disposition home or self-care (01) ==
LOC: M ED 08-23 01:27
DX: G43.909 Migraine, unspecified, not intractable, without status migrainosus (principal)
CPT/HCPCS: 96374; 96375; 99284; J1170; J1200; J1885; J2765

== ENCOUNTER 2016-09-06 21:27 | Day surgery (SDC) | payer OTHER ==
[~2016-09-06] VITALS: Ht 198.1 cm; Wt 107.2 kg
--- NOTE | 2016-09-06 16:28 | REP ---
Retrograde pyelogram: Four views: History: Kidney stones. Findings: A sequence of four fluoroscopically obtained last image hold intraprocedural spot radiographs of the right abdomen document right ureteral cannulation, guidewire manipulation, contrast injection, and double pigtail right ureteral stent placement. Signed by Edgar Borjas MD 09/06/2016 04:50 P
[2016-09-06] MEDS: fentaNYL 100 MCG/2 ML INJECTION (J3010) IV PRN ×8 (16:32→17:23)
[2016-09-06] MEDS: KETOROLAC 30 MG/ML VIAL (J1885) IV SCH ×2 (19:11→19:30)
--- NOTE | 2016-09-06 19:57 | RO ---
DATE OF PROCEDURE: 09/06/2016 PREPROCEDURE DIAGNOSIS: Right hydronephrosis. POSTPROCEDURE DIAGNOSIS: Right ureteral strictures, right ureteral tumor. PROCEDURE: Cystoscopy, right ureteroscopy with balloon dilation of ureteral stricture, right ureteroscopy with biopsy of ureteral tumor, right retrograde pyelogram with intraoperative interpretation of images, right ureteral stent placement. SURGEON: Arnie Sanchez MD PRODUCT DEVELOPMENT COORDINATOR: None. ANESTHESIA: General. OPERATIVE INDICATIONS: This is a 66-year-old male who was found to have microscopic hematuria as well as moderate to severe right hydronephrosis with no specific cause of obstruction on recent CT scan. It was recommended he be brought to the operating room today to investigate the cause of this and potentially biopsy any lesion seen and dilate any stricture seen. DESCRIPTION OF PROCEDURE: The patient was brought to the operating room and general anesthesia was induced. Prophylactic antibiotics were infused. He was then placed in the dorsal lithotomy position and prepped and draped in the usual sterile fashion. A rigid cystoscope was then inserted into urethral meatus and advanced to the bladder. A guidewire was then advanced into the right collecting system. We then advanced a ureteral access sheath over the wire up the right collecting system and the stylet was removed. The wire was then secured to the drape to serve as a safety wire. We then went up the right ureter with a flexible ureteroscope and within the proximal ureter, there was a narrow caliber stricture through which I could not advance the scope. At this point a balloon was utilized to dilate the stricture. Prior to using the balloon a retrograde pyelogram was performed and confirmed there was narrowing in this area and moderate to severe right hydronephrosis. After I balloon dilated the stricture, the area did open up. I was able to advance the flexible ureteroscope up more proximally and of note just proximal to the area of the stricture, there appeared to be an approximately 5 to 10 mm sized papillary tumor. I then advanced the ureteroscope past this area and there appeared to be another stricture at the ureteropelvic junction. I also could not pass the scope past this area. At this point, I utilized the balloon again and dilated the stricture at the ureteropelvic junction. After that was done the balloon was removed, I went back in with a flexible ureteroscope and I was finally able to get the scope all the way into the kidney. The kidney was thoroughly examined and of note there was particularly severe hydronephrosis. There did not appear to be any lesions within the kidney. I then withdrew the flexible ureteroscope back and at this point, I actually obtained renal and ureteral washings, right in the area of the mass. These washings were sent off to pathology. I then spent a significant amount of time trying to obtain biopsies of the mass and I was finally able to get some biopsies of the mass. These biopsies were then handed off and sent for pathological analysis. At this point, the ureteroscope was removed along with the access sheath and no other additional lesions were seen within the ureter. I then utilized the previously placed wire to advance a #7-Panamanian x 22-32 cm JJ ureteral stent up the right collecting system. The wire was then removed and there were adequate curls of the stent in the right renal pelvis and in the bladder. At this point, the bladder was then thoroughly examined to assess for bladder tumors and I did not see any tumors within the bladder. The bladder was then emptied of all fluid and this marked the conclusion of the procedure. The patient was then taken out of the dorsal lithotomy position, awakened from anesthesia and transported to the recovery room in stable condition. ESTIMATED BLOOD LOSS: 0 mL. INTRAOPERATIVE COMPLICATIONS: None. SPECIMENS: Right renal and ureteral washings for cytology, biopsies of right ureteral tumor. PLAN: The patient will followup in the clinic in about one week to discuss pathology results and any future treatment. FORD
[2016-09-06 21:00] VITALS: BP 160/98
[2016-09-06] MEDS: COMBIVENT RESPIMAT 100-20MCG INHALER 4GM INH SCH (21:00)
[2016-09-06] MEDS: SYMBICORT 160/4.5MCG INHALER 6GM INH SCH (21:00)
[~2016-09-06 21:27] MED LIST changes: +ALBUTEROL 90 MCG/ACT 8GM HFA INHALER INH PRN; +CONRAY-60 60% 50ML VIAL (Q9961) As Ordered ONE; +KETOROLAC 30 MG/ML VIAL (J1885) As Ordered ONE; +KETOROLAC 30 MG/ML VIAL (J1885) IV ONE; +LIDOCAINE 2% INJ 100 MG/5 ML SDV (FOR ANES.) As Ordered ONE; +LR 1,000 ML IV ONE; +LR 1,000 ML IV SCH; +METOCLOPRAMIDE INJ 10MG/2ML VIAL (J2765) IV PRN; +MIDAZOLAM INJ 2 MG/2 ML VIAL (J2250) As Ordered ONE; +MORPHINE 2 MG/ML 1ML SYRINGE As Ordered ONE; +MORPHINE 4 MG/ML 1ML SYRINGE IV ONE; +NO NSAIDS XX SCH; +ONDANSETRON 4MG/2ML VIAL (J2405) As Ordered ONE; +ONDANSETRON 4MG/2ML VIAL (J2405) IV PRN; +PERCOCET 5MG/325MG TAB PO PRN; +PERCOCET 5MG/325MG TAB PO SCH; +PHENYLephrine HCL 500 MCG/5 ML (100MCG/ML) SYRINGE (J2370) As Ordered ONE; +PROPOFOL 200 MG/20 ML VIAL As Ordered ONE; +dexameTHASONE 4 MG/ML 1ML VIAL (J1100) As Ordered ONE; +ePHEDrine SULFATE 25 MG/5 ML(5MG/ML) SYRINGE As Ordered ONE; +fentaNYL 250 MCG/5 ML INJECTION (J3010) As Ordered ONE; +oxyBUTYnin 5 MG TAB PO PRN
[2016-09-06] MEDS: MORPHINE 2 MG/ML 1ML SYRINGE IV PRN (22:05)
[2016-09-07] MEDS: MORPHINE 2 MG/ML 1ML SYRINGE IV PRN (00:20)
[2016-09-07] MEDS: KETOROLAC 30 MG/ML VIAL (J1885) IV SCH ×3 (01:10→12:28)
[2016-09-07 06:00] VITALS: BP 125/84
[2016-09-07] MEDS ORDERED: ONDANSETRON 4MG/2ML VIAL (J2405) IV PRN (06:00)
--- NOTE | 2016-09-07 08:52 | IPNPDOC ---
Assessment/Plan Date Seen The patient was seen on 09/07/16. Patient Summary This is a 66 y/o M who is POD1 s/p cysto, right ureteroscopy w/ ureteral biopsies and balloon dilation of ureteral strictures, and right ureteral stent placement, admitted for pain control. His pain is better this morning. Plan/VTE VTE Prophylaxis Ordered?: Yes VTE Exclusion Mechanical Proph: N/A:VTE Prophy Ordered Plan - continue current pain management - ok for discharge home today - plan f/u in urology office next week Subjective Review oF Systems Chief Complaint The patient is a 66-year-old male admitted with a reason for visit of Right Hydronephrosis, Microscopic Hematuria. Events since Last Encounter The patient was admitted o/n due to poor pain control in the recovery room. His pain is better this morning. He had a small amount of emesis this morning, but he notes his nausea has resolved. He is voiding well. He denies fevers or chills. Objective Physical Examination General Exam: Alert, Cooperative, No Acute Distress ABDOMEN EXAM: Soft Skin Exam: Nl turgor and temperature Neuro Exam: Normal Speech Psych Exam: Mental status NL, Mood NL Vital Signs/I&O Vital Signs Date Time Temp Pulse Resp B/P (MAP) Pulse Ox O2 Delivery O2 Flow Rate FiO2 09/07/16 06:00 97.9 84 20 125/84 (98) 94 09/06/16 21:30 Room Air 09/06/16 16:47 3 I&O- Last 24 Hours up to 6 AM 09/07/16 06:00 Intake Total 3415 ml Output Total 300 ml Balance 3115 ml TO GALEANA MD Sep 07, 2016 08:52
[2016-09-07] MEDS: COMBIVENT RESPIMAT 100-20MCG INHALER 4GM INH SCH (13:36)
[2016-09-07] MEDS: SYMBICORT 160/4.5MCG INHALER 6GM INH SCH (13:36)
== END 2016-09-07 14:34 | disposition home or self-care (01) ==
LOC: M SDC 21:27 → M MSPAV 21:31 → M SDC 09-07 14:34
PROVIDERS: ATTEND Urology
DX: C66.1 Malignant neoplasm of right ureter (principal); N35.9 Urethral stricture, unspecified; N52.9 Male erectile dysfunction, unspecified; E04.1 Nontoxic single thyroid nodule; J44.9 Chronic obstructive pulmonary disease, unspecified; F17.210 Nicotine dependence, cigarettes, uncomplicated; M50.20 Other cervical disc displacement, unspecified cervical region; R91.8 Other nonspecific abnormal finding of lung field; R94.31 Abnormal electrocardiogram [ECG] [EKG]; K21.9 Gastro-esophageal reflux disease without esophagitis; R29.898 Other symptoms and signs involving the musculoskeletal system; G43.909 Migraine, unspecified, not intractable, without status migrainosus; G47.9 Sleep disorder, unspecified; R31.29 Other microscopic hematuria; R06.83 Snoring; Z88.8 Allergy status to other drugs, medicaments and biological substances; Z91.018 Allergy to other foods; Z79.899 Other long term (current) drug therapy; Z87.442 Personal history of urinary calculi; Z87.448 Personal history of other diseases of urinary system; Z87.820 Personal history of traumatic brain injury
CPT/HCPCS: 52204; 52332; 74420; 88108; 88305; 94664; 96360; 96361; 96374; 96375; 96376; C1726; C2617; J0690; J1100; J1885; J2250; J2370; J2405; J3010; Q9961

== ENCOUNTER 2016-09-09 15:41 | Emergency (ER) | payer OTHER ==
[~2016-09-09] VITALS: Ht 198.1 cm; Wt 103.4 kg
[~2016-09-09 15:41] MED LIST changes: -ALBUTEROL 90 MCG/ACT 8GM HFA INHALER INH PRN; -CONRAY-60 60% 50ML VIAL (Q9961) As Ordered ONE; -KETOROLAC 30 MG/ML VIAL (J1885) As Ordered ONE; -KETOROLAC 30 MG/ML VIAL (J1885) IV ONE; -LIDOCAINE 2% INJ 100 MG/5 ML SDV (FOR ANES.) As Ordered ONE; -LR 1,000 ML IV ONE; -LR 1,000 ML IV SCH; -METOCLOPRAMIDE INJ 10MG/2ML VIAL (J2765) IV PRN; -MIDAZOLAM INJ 2 MG/2 ML VIAL (J2250) As Ordered ONE; -MORPHINE 2 MG/ML 1ML SYRINGE As Ordered ONE; -MORPHINE 4 MG/ML 1ML SYRINGE IV ONE; -NO NSAIDS XX SCH; -ONDANSETRON 4MG/2ML VIAL (J2405) As Ordered ONE; -ONDANSETRON 4MG/2ML VIAL (J2405) IV PRN; -PERCOCET 5MG/325MG TAB PO PRN; -PERCOCET 5MG/325MG TAB PO SCH; -PHENYLephrine HCL 500 MCG/5 ML (100MCG/ML) SYRINGE (J2370) As Ordered ONE; -PROPOFOL 200 MG/20 ML VIAL As Ordered ONE; -dexameTHASONE 4 MG/ML 1ML VIAL (J1100) As Ordered ONE; -ePHEDrine SULFATE 25 MG/5 ML(5MG/ML) SYRINGE As Ordered ONE; -fentaNYL 250 MCG/5 ML INJECTION (J3010) As Ordered ONE; -oxyBUTYnin 5 MG TAB PO PRN
[2016-09-09] MEDS ORDERED: OXYB5TA (15:48)
[2016-09-09] MEDS ORDERED: OXYC1TAB23 PO (15:48)
[2016-09-09 17:43] LABS: BASO % 0.6 % (0.0-1.0); EOS # 0.3 K/mm3 (0.0-0.50); EOS % 3.5 % (0.0-3.0); LARGE UNSTAINED CELL # 0.3 K/mm3 (0.0-0.4); LARGE UNSTAINED CELL % 2.6 % (0.0-4.0); LYMPH # 1.8 K/mm3 (1.5-4.5); LYMPH % 16.4 % (24.0-44.0); MEAN CORPUSCULAR HEMOGLOBIN 32.2 pg (27.0-33.0); MEAN CORPUSCULAR HGB CONC 34.1 g/dl (32.0-36.5); MEAN CORPUSCULAR VOLUME 94.6 fl (80.0-96.0); MONO # 0.7 K/mm3 (0.0-0.8); MONO % 7.8 % (0.0-5.0); NEUTROPHILS # 6.6 K/mm3 (1.8-7.7); NEUTROPHILS % 69.1 % (36.0-66.0); PLATELET COUNT, AUTOMATED 263 k/mm3 (150-450); RED CELL DISTRIBUTION WIDTH 12.7 % (11.5-14.5); WHITE BLOOD COUNT 9.5 K/mm3 (4.0-10.0)
[2016-09-09 17:54] LABS: ALBUMIN 2.8 GM/DL (3.2-5.2); ALBUMIN/GLOBULIN RATIO 0.68 (1.00-1.93); BILIRUBIN,TOTAL 0.8 MG/DL (0.2-1.0); CALCIUM LEVEL 8.4 MG/DL (8.8-10.2); CREATININE FOR GFR 1.3 MG/DL (0.70-1.30); GLOMERULAR FILTRATION RATE 59.2 (>49); POTASSIUM SERUM 4.2 MEQ/L (3.5-5.1); TOTAL PROTEIN 6.9 GM/DL (6.4-8.2)
[2016-09-09] MEDS ORDERED: MAGNSOL2 PO (18:53)
[2016-09-09] MEDS ORDERED: FLEEENE12 PR (18:53)
[2016-09-09 18:57] VITALS: BP 140/93
[2016-09-09] MEDS ORDERED: FLEET ENEMA PR PRN (19:00)
== END 2016-09-09 19:14 | disposition home or self-care (01) ==
LOC: M ED 16:31
DX: K59.00 Constipation, unspecified (principal); R12 Heartburn; N28.1 Cyst of kidney, acquired; J44.9 Chronic obstructive pulmonary disease, unspecified; Z85.54 Personal history of malignant neoplasm of ureter; Z87.891 Personal history of nicotine dependence; Z79.51 Long term (current) use of inhaled steroids; Z88.5 Allergy status to narcotic agent; Z91.018 Allergy to other foods

== ENCOUNTER → 2016-10-08 | Outpatient (CLI) | payer OTHER ==
[~2016-10-08] MED LIST changes: +FLEEENE12 PR; +MAGN1SOL2 PO; +OXYB5TAB10 PO; +OXYC1TAB23 PO; +PERC5TAB12 PO
[2016-10-08 13:38] LABS: MEAN CORPUSCULAR HEMOGLOBIN 31.4 pg (27.0-33.0); MEAN CORPUSCULAR HGB CONC 33.2 g/dl (32.0-36.5); MEAN CORPUSCULAR VOLUME 94.6 fl (80.0-96.0); RED CELL DISTRIBUTION WIDTH 12.7 % (11.5-14.5); WHITE BLOOD COUNT 8.2 K/mm3 (4.0-10.0)
[2016-10-08 14:42] LABS: ALBUMIN 3.7 GM/DL (3.2-5.2); ALKALINE PHOSPHATASE 92 U/L (45-117); ALT/SGPT 24 U/L (12-78); ANION GAP 6 MEQ/L (8-16); AST/SGOT 16 U/L (15-37); BILIRUBIN,TOTAL 0.4 MG/DL (0.2-1.0); BLOOD UREA NITROGEN 17 MG/DL (7-18); CALCIUM LEVEL 8.6 MG/DL (8.8-10.2); CARBON DIOXIDE LEVEL 24 MEQ/L (21-32); CHLORIDE LEVEL 109 MEQ/L (98-107); CREATININE FOR GFR 0.96 MG/DL (0.70-1.30); GLOMERULAR FILTRATION RATE > 60.0 (>49); GLUCOSE, FASTING 99 MG/DL (80-110); POTASSIUM SERUM 4.4 MEQ/L (3.5-5.1); SODIUM LEVEL 139 MEQ/L (136-145); TOTAL PROTEIN 7.4 GM/DL (6.4-8.2)
== END ==
LOC: M LAB 11:52
PROVIDERS: ATTEND Urology
DX: C68.9 Malignant neoplasm of urinary organ, unspecified (principal)

== ENCOUNTER 2016-11-17 23:37 | Emergency (ER) | payer OTHER ==
[~2016-11-17] VITALS: Ht 198.1 cm; Wt 104.5 kg
[~2016-11-17 23:37] MED LIST changes: -PERC5TAB12 PO
[2016-11-18] MEDS ORDERED: NS 1,000 ML IV ONE (00:45)
[2016-11-18] MEDS ORDERED: ONDANSETRON 4MG/2ML VIAL (J2405) IV ONE (00:45)
[2016-11-18] MEDS: MORPHINE 4 MG/ML 1ML SYRINGE IV PRN ×2 (01:07→02:35)
[2016-11-18 01:14] LABS: ADD MANUAL DIFFER YES; MEAN CORPUSCULAR HEMOGLOBIN 31.4 pg (27.0-33.0); MEAN CORPUSCULAR HGB CONC 33.9 g/dl (32.0-36.5); MEAN CORPUSCULAR VOLUME 92.6 fl (80.0-96.0); PLATELET COUNT, AUTOMATED 246 k/mm3 (150-450); RED CELL DISTRIBUTION WIDTH 13.6 % (11.5-14.5); WHITE BLOOD COUNT 9.3 K/mm3 (4.0-10.0)
[2016-11-18 01:33] LABS: ALBUMIN 3.3 GM/DL (3.2-5.2); ALBUMIN/GLOBULIN RATIO 0.83 (1.00-1.93); ALKALINE PHOSPHATASE 98 U/L (45-117); ALT/SGPT 37 U/L (12-78); ANION GAP 8 MEQ/L (8-16); AST/SGOT 15 U/L (15-37); BILIRUBIN,DIRECT < 0.1 MG/DL (0.0-0.2); BILIRUBIN,TOTAL 0.2 MG/DL (0.2-1.0); BLOOD UREA NITROGEN 15 MG/DL (7-18); CALCIUM LEVEL 8.6 MG/DL (8.8-10.2); CARBON DIOXIDE LEVEL 26 MEQ/L (21-32); CHLORIDE LEVEL 106 MEQ/L (98-107); CREATININE FOR GFR 1.14 MG/DL (0.70-1.30); GLOMERULAR FILTRATION RATE > 60.0 (>49); GLUCOSE, FASTING 111 MG/DL (80-110); POTASSIUM SERUM 3.9 MEQ/L (3.5-5.1); SODIUM LEVEL 140 MEQ/L (136-145); TOTAL PROTEIN 7.3 GM/DL (6.4-8.2)
[2016-11-18 01:48] LABS: BANDS 1 % (< 11); EOSINOPHILS 4 % (0-5)
[2016-11-18 02:12] VITALS: BP 140/91
[2016-11-18] MEDS ORDERED: ISOVUE-370 76% 100ML VIAL (Q9967) As Ordered ONE (02:14)
[2016-11-18] MEDS ORDERED: IPRATROPIUM 0.5MG/ALBUTEROL 2.5MG INH SOL UD 3ML (DUONEB)(J7620) NEB PRN (03:00)
[2016-11-18 03:11] LABS: MAGNESIUM LEVEL 2.1 MG/DL (1.8-2.4)
[2016-11-18] MEDS ORDERED: MAALOX 30 ML SUSP *UDC PO ONE (03:15)
[2016-11-18 03:22] LABS: INR 1.08
--- NOTE | 2016-11-18 03:40 | REPUSA ---
CLINICAL HISTORY: Abdominal pain. TECHNIQUE: Multiple axial, sagittal and coronal CT images were obtained through the abdomen and pelvi s after administration of intravenous contrast material. COMMENTS: Comparison to the prior exam performed on 07/04/2016. Unchanged right hydronephrosis. Right ureteral double-J catheter is in good position. Interval appearance of 1.8 cm round atelectasis in the right lower lobe. Moderate large bowel fecal stasis. Fluid-filled distended stomach. The liver is of uniform attenuation without mass or defect. There is no intra or extrahepatic biliary ductal dilatation. The spleen is normal. The gallbladder is within normal limits. The pancreas is of normal contour and attenuation characteristics. There is no evidence of adrenal mass. Both kidneys demonstrate prompt and equal nephrograms. The kidneys are normal in size, shape and configuration. There is no evidence of renal or ureteral mass. No renal or ureteral calculi are identified. There is no left hydroureter or hydronephrosis. No evidence for appendicitis. There is no bowel wall thickening. No evidence for small or large joseluis l obstruction. There is no evidence of abdominal ascites or lymphadenopathy. There is no evidence of intrinsic or extrinsic bladder mass. There is no pelvic ascites or lymphadeno gerardo. Images of the lung bases show no evidence of pleural or parenchymal mass. There are no pleural effusi ons. The bony structures are free of lytic or blastic lesions. Multilevel degenerative changes are seen in volving the thoracolumbar spine. Scattered calcifications are seen involving the aorta and major bran ches compatible with atherosclerosis. IMPRESSION: Comparison to the prior exam performed on 07/04/2016. Unchanged right hydronephrosis. Right ureteral double-J catheter is in good position. Interval appearance of 1.8 cm round atelectasis in the right lower lobe. Moderate constipation. Fluid-filled distended stomach. Recent ingestion of food versus gastroparesis. Thank you for your kind referral of this patient.
[2016-11-18] MEDS ORDERED: OXYCODONE/APAP 5MG/325MG(BULK FOR ED) 1 TABLET PO ONE (04:30)
[2016-11-18] MEDS ORDERED: PERC5TAB12 PO (04:37)
[2016-11-18] MEDS ORDERED: IPRATROPIUM 0.5MG/ALBUTEROL 2.5MG INH SOL UD 3ML (DUONEB)(J7620) NEB SCH (08:00)
--- NOTE | 2016-11-19 13:35 | ED PDOC ---
Post-Departure Follow-Up dr barraza faxed formal report of ct abd/p for fu Priti Gillespie MD Nov 19, 2016 13:35
== END 2016-11-18 04:56 | disposition home or self-care (01) ==
LOC: M ED 23:37
DX: R10.31 Right lower quadrant pain (principal); C66.9 Malignant neoplasm of unspecified ureter
CPT/HCPCS: 74177; 80048; 80076; 81001; 83605; 83690; 83735; 85025; 85610; 85730; 87040; 87086; 93041; 96374; 96375; 99284; J2405; Q9967